=== PATIENT | female | born 1985 | race Caucasian/White ===

== ENCOUNTER 2016-05-28 20:52 | Emergency (ER) | payer OTHER ==
--- NOTE | 2016-05-28 21:15 | ED Physician Documentation ---
General Adult - HISTORIAN Historian: patient - HPI Chief Complaint: Overdose Additional Information: 30 yo F here from [facility] presents for taking another residents meds by accident. Meds ingested were single dose, Chlorpromaz 200mg, divalproex DR 500mg , Xanax 0.5 mg. All ingested around 1130 AM. Staff on hand states she has been tired since about 1400, not really wanting to eat or drink. Seems to be improving slightly now, more alert. She has been breathing well and answering questions. All other systems reviewed and negative except per HPI. - ROS CONST: no problems EYES/ENT: none CVS/RESP: none GI/: none MS/SKIN/LYMPH: none NEURO/PSYCH: other (decreased alertness, improving.) - PAST HX Past History: other (mental retardation. ) Other History: none Surgeries/Procedures: none Allergies/Adverse Reactions: Allergies Allergy/AdvReac Type Severity Reaction Status Date / Time No Known Drug Allergies Allergy Verified 12/29/15 14:57 Home Medications: Ambulatory Orders Medication Instructions Recorded Carbamide Peroxide [Debrox] 15 ml OT monthly PRN 04/26/13 Cholecalciferol (Vitamin D3) 2,000 unit PO DAILY av 04/26/13 [Vitamin D-3] Blanco Tar [Mg217 Medicated Tar] 240 ml TP DAILY 04/26/13 Docusate Sodium [Dok] 100 mg PO DAILY av 04/26/13 Lactobacillus Acidophilus 1 each PO DAILY av 04/26/13 [Acidophilus] Tramadol HCl [Ultram] 50 mg PO Q6 PRN u2 04/26/13 Medroxyprogesterone Acetate 150 mg IM 1T #1 vi 09/08/13 [Depo-Provera] - SOCIAL HX Smoking History: non-smoker Alcohol Use: none Drug Use: none - FAMILY HX Family History: No - VITAL SIGNS Vital Signs: Vital Signs Temp Pulse Resp BP Pulse Ox 122/89 12/29/15 18:49 - REVIEWED ASSESSMENTS Nursing Assessment Reviewed: Yes Vitals Reviewed: Yes General Adult Physical Exam - PHYSICAL EXAM GENERAL APPEARANCE: no distress EENT: eye inspection normal, ENT inspection normal, pharynx normal, no signs of dehydration, CHUNG, no nystagmus NECK: normal inspection, thyroid normal, supple. No: lymphadenopathy RESPIRATORY: no resp distress, chest non-tender, breath sounds normal CVS: reg rate & rhythm, heart sounds normal, equal pulses, no murmur ABDOMEN: soft, no organomegaly, normal bowel sounds, no distension BACK: normal inspection SKIN: warm/dry, normal color EXTREMITIES: non-tender NEURO: oriented X3, CN's nml as tested, motor nml, other (normal speech.) Discharge Clincal Impression: Drug ingestion, accidental Qualifiers: Encounter type: initial encounter Qualified Code(s): T50.901A - Poisoning by unspecified drugs, medicaments and biological substances, accidental ( unintentional), initial encounter Home Medications: Ambulatory Orders Carbamide Peroxide [Debrox] 15 ml OT monthly PRN 04/26/13 Cholecalciferol (Vitamin D3) [Vitamin D-3] 2,000 unit PO DAILY av 04/26/13 Blanco Tar [Mg217 Medicated Tar] 240 ml TP DAILY 04/26/13 Docusate Sodium [Dok] 100 mg PO DAILY av 04/26/13 Lactobacillus Acidophilus [Acidophilus] 1 each PO DAILY av 04/26/13 Tramadol HCl [Ultram] 50 mg PO Q6 PRN u2 04/26/13 Medroxyprogesterone Acetate [Depo-Provera] 150 mg IM 1T #1 vi 09/08/13 Comments: Her current home meds include nail fungus cream, cough syrup prn. No SSRI, anti- psychotic meds. She is alert and answering quesitons appropriately. She eats apple sauce in the ER without n/v. Condition: Good Disposition: HOME, SELF-CARE Decision to Admit: NO Decision Time: 21:19
[2016-05-28 22:08] VITALS: BP 114/80
== END 2016-05-28 21:20 | disposition home or self-care (01) ==
LOC: ED 20:52
DX: T50.901A Poisoning by unspecified drugs, medicaments and biological substances, accidental (unintentional), initial encounter (principal)
CPT/HCPCS: 99283

== ENCOUNTER 2016-07-24 09:01 | Outpatient (CLI) | payer OTHER ==
[2016-07-24 09:39] LABS: BASOPHILS % 0.3 (0.0-1.5); EOSINOPHILS % 0.5 % (0.0-6.8); MEAN CORPUSCULAR HEMOGLOBIN 29.2 pg (28.0-34.0); MEAN CORPUSCULAR VOLUME 87.7 fl (80.0-100.0); MONOCYTES % 5.5 % (0.0-11.0); NEUTROPHILS # 2.8 # k/uL (1.4-7.7)
[2016-07-24 10:09] LABS: eGFR (African) > 60; eGFR (Non-African) > 60
== END 2016-07-24 09:02 ==
LOC: LAB 09:01
PROVIDERS: ATTEND Nurse Practitioner Family
DX: Z51.81 Encounter for therapeutic drug level monitoring (principal); Z79.899 Other long term (current) drug therapy
CPT/HCPCS: 36415; 80053; 85025

== ENCOUNTER 2016-08-23 09:15 | Outpatient (CLI) | payer OTHER | END 2016-08-23 09:16 | LOC: LAB 09:15 | PROVIDERS: ATTEND Nurse Practitioner Family | DX: Z51.81 Encounter for therapeutic drug level monitoring (principal); Z79.899 Other long term (current) drug therapy | CPT/HCPCS: 36415; 82607; 82746 ==

== ENCOUNTER 2016-09-20 09:52 | Outpatient (CLI) | payer OTHER ==
[2016-09-20 21:10] LABS: SERUM IRON 43 ug/dL (37-145)
== END 2016-09-20 09:53 ==
LOC: LAB 09:52
PROVIDERS: ATTEND Nurse Practitioner Family
DX: R79.89 Other specified abnormal findings of blood chemistry (principal)
CPT/HCPCS: 36415; 82728; 83540; 83550; 85651; 86038; 86140

== ENCOUNTER 2017-07-29 09:07 | Outpatient (CLI) | payer OTHER ==
[2017-07-29 10:09] LABS: BASOPHILS % 0.5 (0.0-1.5); EOSINOPHILS % 0.6 % (0.0-6.8); MEAN CORPUSCULAR HEMOGLOBIN 29.3 pg (28.0-34.0); MEAN CORPUSCULAR VOLUME 91.3 fl (80.0-100.0); MONOCYTES % 5.5 % (0.0-11.0)
[2017-07-29 10:28] LABS: eGFR (African) > 60; eGFR (Non-African) > 60
== END 2017-07-29 09:10 ==
LOC: LAB 09:07
PROVIDERS: ATTEND Nurse Practitioner Family
DX: Z79.899 Other long term (current) drug therapy (principal)
CPT/HCPCS: 36415; 80053; 85025

== ENCOUNTER 2018-03-27 09:13 | Outpatient (CLI) | payer OTHER ==
[2018-03-27 10:25] LABS: MEAN CORPUSCULAR HEMOGLOBIN 28.2 pg (28.0-34.0)
[2018-03-27 10:26] LABS: BASOPHILS % 0.2 (0.0-1.5); EOSINOPHILS % 1.1 % (0.0-6.8); MONOCYTES % 5.7 % (0.0-11.0); NEUTROPHILS # 3.7 # k/uL (1.4-7.7)
[2018-03-27 10:38] LABS: eGFR (Non-African) > 60
== END 2018-03-27 09:25 ==
LOC: LAB 09:13
PROVIDERS: ATTEND Nurse Practitioner Family
DX: Z79.899 Other long term (current) drug therapy (principal); Z51.81 Encounter for therapeutic drug level monitoring
CPT/HCPCS: 36415; 80053; 85025